=== PATIENT | female | born 1940 | race Caucasian/White ===

== ENCOUNTER → 2016-04-20 | Outpatient (CLI) | payer MEDICARE, BC ==
[2016-04-20 20:38] LABS: INR 1.7 (<1.1); Prothrombin Time 16.3 sec (9.0-12.0)
== END | disposition home or self-care (01) ==
LOC: MMGSC 12:12
PROVIDERS: ATTEND Family Medicine
DX: Z79.01 Long term (current) use of anticoagulants (principal); Z51.81 Encounter for therapeutic drug level monitoring
CPT/HCPCS: 36415; 85610

== ENCOUNTER → 2016-04-29 | Outpatient (CLI) | payer MEDICARE, BC ==
[2016-04-29 19:35] LABS: INR 2.3 (<1.1); Prothrombin Time 21.7 sec (9.0-12.0)
== END | disposition home or self-care (01) ==
LOC: MMGSC 13:27
PROVIDERS: ATTEND Family Medicine
DX: Z79.01 Long term (current) use of anticoagulants (principal)
CPT/HCPCS: 36415; 85610

== ENCOUNTER → 2016-05-27 | Outpatient (CLI) | payer MEDICARE, BC ==
[2016-05-27 19:01] LABS: INR 2.4 (<1.1)
== END | disposition home or self-care (01) ==
LOC: MMGSC 14:46
PROVIDERS: ATTEND Family Medicine
DX: Z79.01 Long term (current) use of anticoagulants (principal)
CPT/HCPCS: 36415; 85610

== ENCOUNTER → 2016-06-10 | Outpatient (CLI) | payer MEDICARE, BC ==
[2016-06-10 20:43] LABS: INR 1.8 (<1.1); Prothrombin Time 17.4 sec (9.0-12.0)
== END | disposition home or self-care (01) ==
LOC: MMGSC 11:58
PROVIDERS: ATTEND Family Medicine
DX: Z79.01 Long term (current) use of anticoagulants (principal)
CPT/HCPCS: 36415; 85610

== ENCOUNTER → 2016-06-30 | Outpatient (CLI) | payer MEDICARE, BC ==
[2016-06-30 19:48] LABS: INR 2.4 (<1.1)
[2016-06-30 19:49] LABS: Prothrombin Time 23.5 sec (9.0-12.0)
== END | disposition home or self-care (01) ==
LOC: MMGSC 11:01
PROVIDERS: ATTEND Family Medicine
DX: Z51.81 Encounter for therapeutic drug level monitoring (principal); Z79.01 Long term (current) use of anticoagulants
CPT/HCPCS: 36415; 85610

== ENCOUNTER → 2016-07-29 | Outpatient (CLI) | payer MEDICARE, BC ==
[2016-07-29 20:51] LABS: INR 1.2 (<1.1); Prothrombin Time 12.2 sec (9.0-12.0)
== END | disposition home or self-care (01) ==
LOC: MMGSC 14:24
PROVIDERS: ATTEND Family Medicine
DX: Z51.81 Encounter for therapeutic drug level monitoring (principal); Z79.01 Long term (current) use of anticoagulants
CPT/HCPCS: 36415; 85610

== ENCOUNTER → 2016-08-09 | Outpatient (CLI) | payer MEDICARE, BC ==
[2016-08-09 20:40] LABS: INR 2.1 (<1.1); Prothrombin Time 19.9 sec (9.0-12.0)
== END | disposition home or self-care (01) ==
LOC: MMGSC 14:31
PROVIDERS: ATTEND Family Medicine
DX: Z51.81 Encounter for therapeutic drug level monitoring (principal); Z79.01 Long term (current) use of anticoagulants
CPT/HCPCS: 36415; 85610

== ENCOUNTER → 2016-09-16 | Outpatient (CLI) | payer MEDICARE, BC ==
[2016-09-16 21:45] LABS: INR 2.7 (<1.1); Prothrombin Time 26.1 sec (9.0-12.0)
== END | disposition home or self-care (01) ==
LOC: MMGSC 14:00
PROVIDERS: ATTEND Family Medicine
DX: Z51.81 Encounter for therapeutic drug level monitoring (principal); Z79.01 Long term (current) use of anticoagulants
CPT/HCPCS: 36415; 85610

== ENCOUNTER → 2016-10-10 | Outpatient (CLI) | payer MEDICARE, BC ==
[2016-10-10 18:48] LABS: INR 3.4 (<1.1); Prothrombin Time 33.3 sec (9.0-12.0)
== END ==
LOC: MMGSC 11:43
PROVIDERS: ATTEND Family Medicine
DX: Z51.81 Encounter for therapeutic drug level monitoring (principal); Z79.01 Long term (current) use of anticoagulants
CPT/HCPCS: 36415; 85610

== ENCOUNTER → 2016-10-21 | Outpatient (CLI) | payer MEDICARE, BC ==
[2016-10-21 18:15] LABS: INR 2.8 (<1.1); Prothrombin Time 26.5 sec (9.0-12.0)
== END ==
LOC: MMGSC 11:02
PROVIDERS: ATTEND Family Medicine
DX: Z51.81 Encounter for therapeutic drug level monitoring (principal); Z79.01 Long term (current) use of anticoagulants
CPT/HCPCS: 36415; 85610

== ENCOUNTER → 2016-11-04 | Outpatient (CLI) | payer MEDICARE, BC ==
[2016-11-04 21:12] LABS: INR 3.2 (<1.2); Prothrombin Time 31.5 sec (9.0-12.0)
== END ==
LOC: MMGSC 11:50
PROVIDERS: ATTEND Family Medicine
DX: Z51.81 Encounter for therapeutic drug level monitoring (principal); Z79.01 Long term (current) use of anticoagulants
CPT/HCPCS: 36415; 85610

== ENCOUNTER → 2016-11-22 | Outpatient (CLI) | payer MEDICARE, BC ==
[2016-11-22 19:44] LABS: INR 2.7 (<1.2); Prothrombin Time 25.6 sec (9.0-12.0)
== END | disposition home or self-care (01) ==
LOC: MMGSC 11:26
PROVIDERS: ATTEND Family Medicine
DX: Z51.81 Encounter for therapeutic drug level monitoring (principal); Z79.01 Long term (current) use of anticoagulants
CPT/HCPCS: 36415; 85610

== ENCOUNTER → 2016-12-06 | Outpatient (CLI) | payer MEDICARE, BC ==
[2016-12-06 22:39] LABS: INR 2.9 (<1.2); Prothrombin Time 27.9 sec (9.0-12.0)
== END | disposition home or self-care (01) ==
LOC: MMGSC 12:00
PROVIDERS: ATTEND Family Medicine
DX: Z51.81 Encounter for therapeutic drug level monitoring (principal); Z79.01 Long term (current) use of anticoagulants
CPT/HCPCS: 36415; 85610

== ENCOUNTER → 2016-12-28 | Outpatient (CLI) | payer MEDICARE, BC ==
[2016-12-28 19:11] LABS: INR 2.7 (<1.2); Prothrombin Time 25.9 sec (9.0-12.0)
== END | disposition home or self-care (01) ==
LOC: MMGSC 14:20
PROVIDERS: ATTEND Family Medicine
DX: Z51.81 Encounter for therapeutic drug level monitoring (principal); Z79.01 Long term (current) use of anticoagulants
CPT/HCPCS: 36415; 85610

== ENCOUNTER → 2017-01-19 | Outpatient (CLI) | payer MEDICARE, BC ==
[2017-01-19 20:26] LABS: INR 2.6 (<1.2); Prothrombin Time 25.2 sec (9.0-12.0)
== END | disposition home or self-care (01) ==
LOC: MMGSC 14:04
PROVIDERS: ATTEND Family Medicine
DX: Z51.81 Encounter for therapeutic drug level monitoring (principal); Z79.01 Long term (current) use of anticoagulants
CPT/HCPCS: 36415; 85610

== ENCOUNTER → 2017-03-17 | Outpatient (CLI) | payer MEDICARE, BC ==
[2017-03-17 21:36] LABS: INR 2.7 (<1.2); Prothrombin Time 26.3 sec (9.0-12.0)
== END | disposition home or self-care (01) ==
LOC: MMGSC 12:26
PROVIDERS: ATTEND Family Medicine
DX: Z51.81 Encounter for therapeutic drug level monitoring (principal); Z79.01 Long term (current) use of anticoagulants
CPT/HCPCS: 36415; 85610

== ENCOUNTER → 2017-07-11 | Outpatient (CLI) | payer MEDICARE, BC ==
[2017-07-11 20:42] LABS: INR 2.9 (<1.2); Prothrombin Time 26.4 sec (9.0-12.0)
== END | disposition home or self-care (01) ==
LOC: MMGSC 11:44
PROVIDERS: ATTEND Family Medicine
DX: Z51.81 Encounter for therapeutic drug level monitoring (principal); Z79.01 Long term (current) use of anticoagulants
CPT/HCPCS: 36415; 85610

== ENCOUNTER → 2020-07-15 | Outpatient (CLI) | payer MEDICARE, BC ==
--- NOTE | 2020-07-17 11:05 | MM ---
Reason for exam: screening (asymptomatic). Last mammogram was performed 7 years and 6 months ago. History: Patient is postmenopausal, has history of other cancer at age 72, and is nulliparous. Physical Findings: A clinical breast exam by your physician is recommended on an annual basis and results should be correlated with mammographic findings. MG 3D Screening Mammo W/Cad Bilateral CC and MLO view(s) were taken. Prior study comparison: January 29, 2013, mammogram, performed at [facility]. June 24, 2010, mammogram, performed at [facility]. The breast tissue is extremely dense which could obscure a lesion on mammography. No significant changes when compared with prior studies. ASSESSMENT: Benign, BI-RAD 2 RECOMMENDATION: Routine screening mammogram of both breasts in 1 year.
== END | disposition home or self-care (01) ==
LOC: RADMAMWWP 14:28
PROVIDERS: ATTEND Family Medicine
DX: Z12.31 Encounter for screening mammogram for malignant neoplasm of breast (principal); Z78.0 Asymptomatic menopausal state
CPT/HCPCS: 77063; 77067